=== PATIENT | male | born 1985 | race Hispanic/Latino ===

== ENCOUNTER 2018-07-09 16:42 | Emergency (ER) | payer OTHER ==
[2018-07-09] MEDS ORDERED: ASPIRIN 325 MG TABLET ONE (16:58)
[2018-07-09 17:00] LABS: BASOPHILS % (AUTO) 0.8 % (0.0-5.0); EOSINOPHILS % (AUTO) 3.7 % (0.0-8.0); HEMATOCRIT 46.9 % (42-54); LYMPHOCYTES % (AUTO) 29.7 % (21.0-51.0); MEAN CORPUSCULAR HGB CONC 35.2 g/dL (32.0-36.0); MEAN CORPUSCULAR VOLUME 85.2 fL (79-99); MONOCYTES % (AUTO) 6.6 % (3.0-13.0); NEUTROPHILS % (AUTO) 59.2 % (40.0-77.0); NUCLEATED RED BLOOD CELLS 0.1 % (0.0-0.19); PLATELET COUNT (AUTO) 242 K/uL (130-400); RED BLOOD CELL COUNT(AUTO) 5.51 MIL/uL (4.50-6.20); RED CELL DISTRIBUTION WIDTH 12.8 % (11.0-15.5); WHITE BLOOD COUNT (AUTO) 8.6 K/uL (4.8-10.8)
[2018-07-09] MEDS ORDERED: NITROGLYCERIN 1GM/1 INCH PACKET TD ONE (17:06)
[2018-07-09 17:15] LABS: INR 0.89 (0.85-1.15); PARTIAL THROMBOPLASTIN TIME 27.6 SEC (26.3-35.5); PROTHROMBIN TIME 9.4 SEC (9.6-11.6)
[2018-07-09 17:18] LABS: CREATININE 0.7 mg/dL (0.5-1.5); POTASSIUM 5.2 mmol/L (3.5-5.1)
[2018-07-09 17:19] LABS: B-TYPE NATRIURETIC PEPTIDE < 5 pg/mL (0-100)
[2018-07-09 17:25] LABS: ALBUMIN 3.7 g/dL (3.5-5.0); BILIRUBIN,TOTAL 0.4 mg/dL (0.2-1.0); TOTAL PROTEIN, SERUM 8.2 g/dL (6.0-8.3)
[2018-07-09 17:46] LABS: APPEARANCE,URINE Clear (CLEAR); BILIRUBIN,URINE Negative (NEGATIVE); COLOR,URINE Yellow (YELLOW); GLUCOSE, URINE (UA) >=1000 mg/dL (NEGATIVE); KETONES,URINE Negative (NEGATIVE); LEUKOCYTE ESTERASE ,URINE Negative (NEGATIVE); NITRATE,URINE Negative (NEGATIVE); OCCULT BLOOD,URINE Negative (NEGATIVE); PROTEIN,URINE Negative (NEGATIVE); UROBILINOGEN,URINE 0.2 mg/dL (0.2-1.0)
[2018-07-09 18:14] LABS: BACTERIA,URINE Rare /HPF (None Seen); RBC,URINE 0-1 /HPF (0-1); SQUAMOUS EPITHELIAL CELL,UR None Seen /HPF (0-2); WBC,URINE 0-1 /HPF (0-1)
[2018-07-09 18:26] LABS: AMPHET/METH SCREEN,URINE NEGATIVE (NEGATIVE); BARBITURATE SCREEN, URINE NEGATIVE (NEGATIVE); BENZODIAZEPINES SCREEN,URINE NEGATIVE (NEGATIVE); CANNABINOID SCREEN,URINE NEGATIVE (NEGATIVE); COCAINE SCREEN,URINE NEGATIVE (NEGATIVE); OPIATE SCREEN,URINE NEGATIVE (NEGATIVE); PHENCYCLIDINE SCREEN,URINE NEGATIVE (NEGATIVE)
[2018-07-09] MEDS ORDERED: METOPROLOL TARTRATE 1 MG/ML 5ML VIAL IV ONE (18:35)
== END 2018-07-09 21:18 | disposition home or self-care (01) ==
LOC: EDH 16:42
DX: I10 Essential (primary) hypertension (principal); E11.9 Type 2 diabetes mellitus without complications; R42 Dizziness and giddiness; R51 Headache; E78.5 Hyperlipidemia, unspecified; I48.91 Unspecified atrial fibrillation; Z91.14 Patient's other noncompliance with medication regimen; Z91.041 Radiographic dye allergy status
CPT/HCPCS: 36415; 71045; 80053; 80305; 81001; 82550; 83880; 84484 ×2; 85025; 85610; 85730; 93005 ×2; 96374; 99284; J3490

== ENCOUNTER 2019-10-20 19:27 | Emergency (ER) | payer OTHER ==
[2019-10-20] MEDS ORDERED: LIDOCAINE 1%-EPI 1:100,000 20 ML VIAL IJ ONE (20:43)
[2019-10-20 21:22] LABS: BASOPHILS % (AUTO) 0.4 % (0.0-5.0); HEMATOCRIT 43.3 % (42-54); LYMPHOCYTES % (AUTO) 20.8 % (21.0-51.0); MEAN CORPUSCULAR HEMOGLOBIN 30.2 pg (27.0-33.0); MEAN CORPUSCULAR HGB CONC 35.3 g/dL (32.0-36.0); MEAN CORPUSCULAR VOLUME 85.4 fL (79-99); MONOCYTES % (AUTO) 7.7 % (3.0-13.0); NEUTROPHILS % (AUTO) 67.6 % (40.0-77.0); PLATELET COUNT (AUTO) 232 K/uL (130-400); RED BLOOD CELL COUNT(AUTO) 5.07 MIL/uL (4.50-6.20); RED CELL DISTRIBUTION WIDTH 11.9 % (11.0-15.5); WHITE BLOOD COUNT (AUTO) 11.2 K/uL (4.8-10.8)
[2019-10-20 21:46] LABS: ALBUMIN 3.4 g/dL (3.5-5.0); BILIRUBIN,TOTAL 0.3 mg/dL (0.2-1.0); POTASSIUM 4.4 mmol/L (3.5-5.1); TOTAL PROTEIN, SERUM 7.8 g/dL (6.0-8.3)
[2019-10-20] MEDS ORDERED: INSULIN HUMULIN R 100 UNIT/ML 3ML ONE (22:08)
== END 2019-10-20 22:13 | disposition home or self-care (01) ==
LOC: EDH 19:27
DX: L03.221 Cellulitis of neck (principal); L02.11 Cutaneous abscess of neck; E11.9 Type 2 diabetes mellitus without complications; E78.5 Hyperlipidemia, unspecified; I10 Essential (primary) hypertension; I48.91 Unspecified atrial fibrillation; Z72.0 Tobacco use; Z91.041 Radiographic dye allergy status
CPT/HCPCS: 10060; 36415; 80053; 85025; 93005; 96372; 99284; J1815; J3490

== ENCOUNTER 2019-10-22 15:40 | Emergency (ER) | payer OTHER ==
[2019-10-22] MEDS ORDERED: CEFTRIAXONE SODIUM 2 GM VIAL ONE (16:12)
[2019-10-22] MEDS ORDERED: SODIUM CHLORIDE 0.9% 100 ML IV ONE (16:12)
[2019-10-22] MEDS ORDERED: ONDANSETRON HCL 4 MG/2 ML VIAL ONE (16:34)
[2019-10-22 16:45] LABS: BASOPHILS % (AUTO) 0.4 % (0.0-5.0); EOSINOPHILS % (AUTO) 2.7 % (0.0-8.0); HEMATOCRIT 45.9 % (42-54); LYMPHOCYTES % (AUTO) 18.4 % (21.0-51.0); MEAN CORPUSCULAR HEMOGLOBIN 29.7 pg (27.0-33.0); MEAN CORPUSCULAR HGB CONC 34.9 g/dL (32.0-36.0); MEAN CORPUSCULAR VOLUME 85.3 fL (79-99); MONOCYTES % (AUTO) 9.1 % (3.0-13.0); NEUTROPHILS % (AUTO) 68.8 % (40.0-77.0); PLATELET COUNT (AUTO) 224 K/uL (130-400); RED BLOOD CELL COUNT(AUTO) 5.38 MIL/uL (4.50-6.20); RED CELL DISTRIBUTION WIDTH 11.9 % (11.0-15.5); WHITE BLOOD COUNT (AUTO) 10.2 K/uL (4.8-10.8)
[2019-10-22 16:46] LABS: APPEARANCE,URINE Clear (CLEAR); BILIRUBIN,URINE Negative (NEGATIVE); COLOR,URINE Yellow (YELLOW); GLUCOSE, URINE (UA) >=1000 mg/dL (NEGATIVE); KETONES,URINE 15 mg/dL (NEGATIVE); LEUKOCYTE ESTERASE ,URINE Negative (NEGATIVE); NITRATE,URINE Negative (NEGATIVE); OCCULT BLOOD,URINE Negative (NEGATIVE); PH,URINE 5.5 (5.0-8.0); PROTEIN,URINE Negative (NEGATIVE)
[2019-10-22 17:00] LABS: INR 0.9 (0.85-1.15); PARTIAL THROMBOPLASTIN TIME 28.9 SEC (26.3-35.5); PROTHROMBIN TIME 9.8 SEC (9.6-11.6)
[2019-10-22 17:02] LABS: BACTERIA,URINE Rare /HPF (None Seen); MUCUS,URINE Few LPF (None Seen); RBC,URINE 0-1 /HPF (0-1); SQUAMOUS EPITHELIAL CELL,UR Moderate /HPF (0-2)
[2019-10-22 17:18] LABS: ALANINE AMINOTRANSFERASE 62 U/L (12-78); ALBUMIN 3.6 g/dL (3.5-5.0); ASPARTATE AMINOTRANSFERASE 28 U/L (10-37); BILIRUBIN,TOTAL 0.5 mg/dL (0.2-1.0); CARBON DIOXIDE 27 mmol/L (21-32); CHLORIDE 95 mmol/L (101-111); CREATINE KINASE, TOTAL 186 U/L (21-232); CREATININE 0.9 mg/dL (0.5-1.5); GLOMERULAR FILTR. RATE CALC 104 mL/min (>60); MYOGLOBIN 27 ng/mL (10-92); POTASSIUM 4.1 mmol/L (3.5-5.1); SODIUM SERUM 133 mmol/L (136-145); TOTAL PROTEIN, SERUM 8.6 g/dL (6.0-8.3); TROPONIN I < 0.04 ng/mL (0.00-0.06); UREA NITROGEN, BLOOD 11 mg/dL (7-18)
[2019-10-22 17:31] LABS: GLUCOSE,RANDOM 418 mg/dL (70-105)
[2019-10-22] MEDS ORDERED: IBUPROFEN 400 MG TABLET ONE (18:49)
[2019-10-22] MEDS ORDERED: VANCOMYCIN 1GM+NS 250ML 500 ML IV ONE (18:50)
== END 2019-10-22 21:52 | disposition home or self-care (01) ==
LOC: EDH 15:40
DX: L02.11 Cutaneous abscess of neck (principal); E11.65 Type 2 diabetes mellitus with hyperglycemia; Z20.828 Contact with and (suspected) exposure to other viral communicable diseases; R05 Cough; R50.9 Fever, unspecified; I10 Essential (primary) hypertension; I48.91 Unspecified atrial fibrillation; E78.5 Hyperlipidemia, unspecified; Z91.041 Radiographic dye allergy status
CPT/HCPCS: 36415; 70490; 71045; 80053; 81001; 82550; 83605; 83874; 84145; 84484; 85025; 85610; 85730; 86900; 86901; 87040 ×2; 87088; 93005; 96361; 96365; 96366; 96375; 99285; J0696; J2405; J3370; U0003

== ENCOUNTER 2021-11-29 22:55 | Emergency (ER) | payer BC, OTHER ==
[~2021-11-29] VITALS: Ht 190.5 cm; Wt 166.9 kg
[2021-11-29 23:34] LABS: BASOPHILS % (AUTO) 0.5 % (0.0-5.0); EOSINOPHILS % (AUTO) 4.5 % (0.0-8.0); HEMATOCRIT 41.6 % (42-54); LYMPHOCYTES % (AUTO) 31.4 % (21.0-51.0); MEAN CORPUSCULAR HEMOGLOBIN 29.4 pg (27.0-33.0); MEAN CORPUSCULAR HGB CONC 35.1 g/dL (32.0-36.0); MEAN CORPUSCULAR VOLUME 83.7 fL (79-99); MONOCYTES % (AUTO) 8.7 % (3.0-13.0); NEUTROPHILS % (AUTO) 54.2 % (40.0-77.0); PLATELET COUNT (AUTO) 223 K/uL (130-400); RED BLOOD CELL COUNT(AUTO) 4.97 MIL/uL (4.50-6.20); RED CELL DISTRIBUTION WIDTH 11.8 % (11.0-15.5); WHITE BLOOD COUNT (AUTO) 8.1 K/uL (4.8-10.8)
[2021-11-29 23:41] LABS: APPEARANCE,URINE CLEAR (CLEAR); BILIRUBIN,URINE NEGATIVE (NEGATIVE); GLUCOSE, URINE (UA) >=1000 mg/dL (NEGATIVE); KETONES,URINE NEGATIVE (NEGATIVE); LEUKOCYTE ESTERASE ,URINE NEGATIVE (NEGATIVE); NITRATE,URINE NEGATIVE (NEGATIVE); OCCULT BLOOD,URINE NEGATIVE (NEGATIVE); PROTEIN,URINE NEGATIVE (NEGATIVE); UROBILINOGEN,URINE 0.2 mg/dL (0.2-1.0)
[2021-11-29 23:46] LABS: COLOR,URINE STRAW (YELLOW)
[2021-11-29 23:48] LABS: BACTERIA,URINE None Seen /HPF (None Seen); MUCUS,URINE Rare LPF (None Seen); RBC,URINE None Seen /HPF (0-1); SQUAMOUS EPITHELIAL CELL,UR Rare /HPF (0-2); WBC,URINE None Seen /HPF (0-1); YEAST,URINE BUDDING None Seen /HPF (None Seen)
[2021-11-29 23:51] LABS: ALBUMIN 3.3 g/dL (3.5-5.0); CREATININE 0.9 mg/dL (0.5-1.5); TOTAL PROTEIN, SERUM 7.5 g/dL (6.0-8.3)
[2021-11-30] MEDS ORDERED: 0.9%NACL 1000ML 1,000 ML IV ONE
[2021-11-30] MEDS ORDERED: INSULIN HUMULIN R 100 UNIT/ML 3ML IV ONE
[2021-11-30] MEDS ORDERED: AMOX-426 PO (00:55)
[2021-11-30 01:10] VITALS: BP 147/81
== END 2021-11-30 01:11 | disposition home or self-care (01) ==
LOC: EDH 22:55
DX: E11.65 Type 2 diabetes mellitus with hyperglycemia (principal); L03.031 Cellulitis of right toe; E11.40 Type 2 diabetes mellitus with diabetic neuropathy, unspecified; E78.00 Pure hypercholesterolemia, unspecified; I10 Essential (primary) hypertension; I48.91 Unspecified atrial fibrillation; J45.909 Unspecified asthma, uncomplicated; Z88.8 Allergy status to other drugs, medicaments and biological substances
CPT/HCPCS: 99284; 80053; 85025; 82948; 86140; 81001; 36415; 73660; 96374; J1815; J7030

== ENCOUNTER 2022-11-29 08:27 | Emergency (ER) | payer BC ==
[~2022-11-29] VITALS: Ht 190.5 cm; Wt 158.8 kg
[~2022-11-29 08:27] MED LIST: AMOX-426 PO
[2022-11-29 08:52] LABS: BASOPHILS # (AUTO) 0.04 K/uL (0.00-0.20); BASOPHILS % (AUTO) 0.3 % (0.0-5.0); EOSINOPHILS # (AUTO) 0.11 K/uL (0.00-0.70); EOSINOPHILS % (AUTO) 0.8 % (0.0-8.0); HEMATOCRIT 40.3 % (42-54); IMMATURE GRANULOCYTE ABSOLUTE 0.07 K/uL (0-1); LYMPHOCYTES # (AUTO) 1.8 K/uL (1.0-4.8); LYMPHOCYTES % (AUTO) 12.8 % (21.0-51.0); MEAN CORPUSCULAR VOLUME 85.7 fL (79-99); MONOCYTES % (AUTO) 7.3 % (3.0-13.0); NEUTROPHILS # (AUTO) 10.8 K/uL (1.8-7.7); NEUTROPHILS % (AUTO) 78.3 % (40.0-77.0); PLATELET COUNT (AUTO) 219 K/uL (130-400); RED CELL DISTRIBUTION WIDTH 11.8 % (11.0-15.5); WHITE BLOOD COUNT (AUTO) 13.8 K/uL (4.8-10.8)
[2022-11-29 09:05] LABS: ALBUMIN 3.3 g/dL (3.5-5.0); BILIRUBIN,TOTAL 0.5 mg/dL (0.2-1.0); CREATININE 1.1 mg/dL (0.5-1.5); POTASSIUM 4.2 mmol/L (3.5-5.1)
[2022-11-29 09:15] LABS: SARS-CoV-2, RNA, NAAT NEGATIVE SARS CoV-2 (NEGATIVE)
[2022-11-29 09:19] LABS: INFLUENZA TYPE A Negative For Type A (NEGATIVE); INFLUENZA TYPE B Negative For Type B (NEGATIVE)
[2022-11-29] MEDS ORDERED: 0.9%NACL 1000ML 1,000 ML IV ONE ×2 (09:24→09:30)
[2022-11-29] MEDS ORDERED: ACETAMINOPHEN 500 MG TABLET PO ONE (09:30)
[2022-11-29] MEDS ORDERED: ACETAMINOPHEN 500 MG TABLET ONE (09:30)
[2022-11-29 10:09] LABS: APPEARANCE,URINE CLOUDY (CLEAR); BILIRUBIN,URINE NEGATIVE (NEGATIVE); COLOR,URINE YELLOW (YELLOW); GLUCOSE, URINE (UA) >=1000 mg/dL (NEGATIVE); KETONES,URINE 5 mg/dL (NEGATIVE); LEUKOCYTE ESTERASE ,URINE NEGATIVE Leu/uL (NEGATIVE); NITRATE,URINE NEGATIVE (NEGATIVE); OCCULT BLOOD,URINE NEGATIVE (NEGATIVE); PH,URINE 6.5 (5.0-8.0); PROTEIN,URINE 200 mg/dL (NEGATIVE)
[2022-11-29 10:10] LABS: ADD UA MICROSCOPIC YES
[2022-11-29 10:23] LABS: MUCUS,URINE RARE LPF (None Seen); SQUAMOUS EPITHELIAL CELL,UR FEW /HPF (0-2)
[2022-11-29] MEDS ORDERED: CEFTRIAXONE 1G VIAL IVPB ONE (12:00)
[2022-11-29 13:35] VITALS: BP 115/57; PULSE 98; RESP 18; O2SAT 99
[2022-11-29] MEDS ORDERED: ONDA4TAB10 PO (14:08)
[2022-11-29] MEDS ORDERED: CIPR-278 PO (14:08)
== END 2022-11-29 14:33 | disposition home or self-care (01) ==
LOC: EDH 08:27
DX: R50.9 Fever, unspecified (principal); N39.0 Urinary tract infection, site not specified; E11.9 Type 2 diabetes mellitus without complications; E78.00 Pure hypercholesterolemia, unspecified; I10 Essential (primary) hypertension; I48.91 Unspecified atrial fibrillation; J45.909 Unspecified asthma, uncomplicated; Z88.8 Allergy status to other drugs, medicaments and biological substances; Z20.822 Contact with and (suspected) exposure to COVID-19
CPT/HCPCS: 99284; 96374; 71045; 96361; 87635; 84484; 80053; 85025; 87040 ×2; 87804 ×2; 87088; 83605 ×2; 81001; 36415; 73610; 73590; 93005; C9803; J7030; J0696; 96367

== ENCOUNTER 2022-12-22 18:01 | Emergency (ER) | payer BC ==
[~2022-12-22] VITALS: Ht 190.5 cm; Wt 158.8 kg
[~2022-12-22 18:01] MED LIST changes: +CIPR-278 PO; +ONDA4TAB10 PO
[2022-12-22 18:41] LABS: BASOPHILS # (AUTO) 0.04 K/uL (0.00-0.20); BASOPHILS % (AUTO) 0.5 % (0.0-5.0); EOSINOPHILS # (AUTO) 0.36 K/uL (0.00-0.70); EOSINOPHILS % (AUTO) 4.7 % (0.0-8.0); HEMATOCRIT 39.1 % (42-54); IMMATURE GRANULOCYTE ABSOLUTE 0.04 K/uL (0-1); LYMPHOCYTES % (AUTO) 26.1 % (21.0-51.0); MEAN CORPUSCULAR HEMOGLOBIN 29.2 pg (27.0-33.0); MEAN CORPUSCULAR VOLUME 85.9 fL (79-99); MONOCYTES # (AUTO) 0.6 K/uL (0.1-1.0); MONOCYTES % (AUTO) 7.3 % (3.0-13.0); NEUTROPHILS # (AUTO) 4.7 K/uL (1.8-7.7); NEUTROPHILS % (AUTO) 60.9 % (40.0-77.0); PLATELET COUNT (AUTO) 347 K/uL (130-400); RED BLOOD CELL COUNT(AUTO) 4.55 MIL/uL (4.50-6.20); RED CELL DISTRIBUTION WIDTH 11.9 % (11.0-15.5); WHITE BLOOD COUNT (AUTO) 7.7 K/uL (4.8-10.8)
[2022-12-22 19:00] LABS: ALBUMIN 3.2 g/dL (3.5-5.0); BILIRUBIN,TOTAL 0.2 mg/dL (0.2-1.0); POTASSIUM 4.3 mmol/L (3.5-5.1); TOTAL PROTEIN, SERUM 8.5 g/dL (6.0-8.3)
[2022-12-22] MEDS ORDERED: INSULIN HUMULIN R 100 UNIT/ML 3ML IV STA (19:01)
[2022-12-22 19:15] VITALS: BP 158/85; PULSE 95; RESP 18; O2SAT 98
[2022-12-22] MEDS ORDERED: 0.9%NACL 1000ML 1,000 ML IV ONE (19:30)
== END 2022-12-22 20:11 | disposition home or self-care (01) ==
LOC: EDH 18:01
DX: E11.65 Type 2 diabetes mellitus with hyperglycemia (principal); H43.391 Other vitreous opacities, right eye; I10 Essential (primary) hypertension; E78.00 Pure hypercholesterolemia, unspecified; I48.91 Unspecified atrial fibrillation; J45.909 Unspecified asthma, uncomplicated; Z88.8 Allergy status to other drugs, medicaments and biological substances; Z91.040 Latex allergy status; Z79.899 Other long term (current) drug therapy; Z98.890 Other specified postprocedural states
CPT/HCPCS: 99284; 96374; 96361; 80053; 85025; 36415; J1815; J7030

== ENCOUNTER 2023-03-04 08:36 | Emergency (ER) | payer BC ==
[~2023-03-04] VITALS: Ht 190.5 cm; Wt 158.8 kg
[2023-03-04] MEDS ORDERED: KETOROLAC 30MG VIAL (30MG/ML) IM ONE (09:30)
[2023-03-04] MEDS ORDERED: SULF1TAB42 PO (11:42)
[2023-03-04] MEDS ORDERED: INSULIN HUMULIN R 100 UNIT/ML 3ML SQ ONE (12:00)
[2023-03-04 12:07] VITALS: BP 147/76; PULSE 88; RESP 18; O2SAT 98
== END 2023-03-04 12:09 | disposition home or self-care (01) ==
LOC: EDH 08:36
DX: L02.811 Cutaneous abscess of head [any part, except face] (principal); E11.65 Type 2 diabetes mellitus with hyperglycemia; E78.00 Pure hypercholesterolemia, unspecified; I10 Essential (primary) hypertension; Z88.8 Allergy status to other drugs, medicaments and biological substances; Z91.041 Radiographic dye allergy status
CPT/HCPCS: 99284; 10060; 87070; 87076; 87077; 87186; 82948; 96372 ×2; J1815; J1885

== ENCOUNTER 2023-03-17 00:30 | Emergency (ER) | payer BC ==
[~2023-03-17] VITALS: Ht 190.5 cm; Wt 159.7 kg
[~2023-03-17 00:30] MED LIST changes: +SULF1TAB42 PO
[2023-03-17] MEDS ORDERED: LIDOCAINE HCL 1% 20 ML VIAL ONE (01:19)
[2023-03-17] MEDS ORDERED: 0.9%NACL 1000ML 1,000 ML IV SCH (02:00)
[2023-03-17] MEDS ORDERED: INSULIN HUMULIN R 100 UNIT/ML 3ML IV ONE ×2 (02:00→04:30)
[2023-03-17] MEDS ORDERED: KETOROLAC 30MG VIAL (30MG/ML) IVP ONE (02:00)
[2023-03-17 02:06] LABS: BASOPHILS # (AUTO) 0.04 K/uL (0.00-0.20); BASOPHILS % (AUTO) 0.5 % (0.0-5.0); EOSINOPHILS # (AUTO) 0.42 K/uL (0.00-0.70); EOSINOPHILS % (AUTO) 5.5 % (0.0-8.0); HEMATOCRIT 40.6 % (42-54); IMMATURE GRANULOCYTE ABSOLUTE 0.05 K/uL (0-1); LYMPHOCYTES % (AUTO) 39.2 % (21.0-51.0); MEAN CORPUSCULAR HGB CONC 34.5 g/dL (32.0-36.0); MEAN CORPUSCULAR VOLUME 84.1 fL (79-99); MONOCYTES # (AUTO) 0.6 K/uL (0.1-1.0); MONOCYTES % (AUTO) 8.3 % (3.0-13.0); NEUTROPHILS # (AUTO) 3.5 K/uL (1.8-7.7); NEUTROPHILS % (AUTO) 45.8 % (40.0-77.0); PLATELET COUNT (AUTO) 291 K/uL (130-400); RED BLOOD CELL COUNT(AUTO) 4.83 MIL/uL (4.50-6.20); RED CELL DISTRIBUTION WIDTH 12.4 % (11.0-15.5); WHITE BLOOD COUNT (AUTO) 7.7 K/uL (4.8-10.8)
[2023-03-17 02:19] LABS: CREATININE 0.9 mg/dL (0.5-1.5); POTASSIUM 4.1 mmol/L (3.5-5.1)
[2023-03-17 04:29] VITALS: BP 142/76; PULSE 74; RESP 16; O2SAT 99
== END 2023-03-17 05:09 | disposition home or self-care (01) ==
LOC: EDH 00:30
DX: L02.31 Cutaneous abscess of buttock (principal); L02.811 Cutaneous abscess of head [any part, except face]; E11.65 Type 2 diabetes mellitus with hyperglycemia; E78.00 Pure hypercholesterolemia, unspecified; I10 Essential (primary) hypertension; F32.A Depression, unspecified; Z88.8 Allergy status to other drugs, medicaments and biological substances; Z91.013 Allergy to seafood
CPT/HCPCS: 99284; 10061; 96374; 96361; 96375; 80048; 85025; 87070; 87076; 82948 ×2; 36415; J1815 ×2; J7030; J1885

== ENCOUNTER 2023-04-23 15:02 | Emergency (ER) | payer BC, OTHER ==
[~2023-04-23] VITALS: Ht 190.5 cm; Wt 164.2 kg
[2023-04-23 15:08] VITALS: BP 152/88; PULSE 96; RESP 16; O2SAT 98
== END 2023-04-23 16:00 | disposition home or self-care (01) ==
LOC: EDH 15:02
DX: L02.811 Cutaneous abscess of head [any part, except face] (principal); E11.9 Type 2 diabetes mellitus without complications; E78.00 Pure hypercholesterolemia, unspecified; I10 Essential (primary) hypertension; F32.A Depression, unspecified; Z88.8 Allergy status to other drugs, medicaments and biological substances; Z91.041 Radiographic dye allergy status
CPT/HCPCS: 99282

== ENCOUNTER 2024-03-07 22:29 | Emergency (ER) | payer OTHER ==
[~2024-03-07] VITALS: Ht 190.5 cm; Wt 152.5 kg
[~2024-03-07 22:29] MED LIST changes: -AMOX-426 PO; +BUSP5TAB3 PO; -CIPR-278 PO; +HONE44PA TP; +LEVO-70 PO; +LISI2.5T13 PO; +MELO-108 PO; +METF-446 PO; +METH-812 PO; +METO-408 PO; -ONDA4TAB10 PO; +ROSU40TA88 PO; -SULF1TAB42 PO; +TIRZ15PE SQ
[2024-03-07 22:31] VITALS: BP 145/83; PULSE 93; RESP 20; TEMP 97.5
--- NOTE | 2024-03-07 23:21 | HMCIMG ---
CHEST 1VW HISTORY: PICC line placement COMPARISON: None FINDINGS: A frontal projection of the chest was obtained. No acute pulmonary infiltrates is seen. The heart is normal in size. Prominent interstitial markings are seen. PICC line is seen entering from the right with distal tip in plane of the superior vena cava. IMPRESSION: 1. No acute pulmonary infiltrate is seen.
--- NOTE | 2024-03-07 23:59 | NUR ---
REPORT TO AURELIO ZEPEDA
--- NOTE | 2024-03-08 00:20 | NUR ---
DRESSING TO R UPPER ARM PICC LINE CHANGED, PATIENT TOLERATED WELL
--- NOTE | 2024-03-08 00:23 | ERN ---
General Chief Complaint: Other Problems Stated Complaint: RT PICC LINE DRESSING COMING OFF. HAKEEM ONE JUDD Time Seen by MD: 22:32 History of Present Illness Initial Comments Mr. Solo is a very pleasant 38-year-old male significant past medical history of morbid obesity essential hypertension and hyperlipidemia who comes in with a complaint of a PICC line dressing malfunction. Patient reports that he is taking antibiotics for a osteomyelitis of his lower extremities. Patient states that he perspire is a lot and that has a dressing if it was no longer attached well. Patient comes in for a dressing change. Allergies: Coded Allergies: Iodine and Iodide Containing Produc (Unverified Allergy, Unknown, 11/29/21) shellfish derived (Unverified Allergy, Unknown, 11/29/21) Home Meds Reported Medications Tirzepatide (Mounjaro) 15 Mg/0.5 Ml Pen.injctr, 15 MG SQ QWEEK 03/06/24 Honey (Medihoney) 100 % Paste..ml., 1 APPL TP BID 03/02/24 Buspirone HCl (Buspirone HCl) 5 Mg Tablet, 1 TAB PO BID 03/02/24 Methocarbamol (Methocarbamol) 750 Mg Tablet, 1 TAB PO Q4HPRN PRN for muscle spasm 03/02/24 Rosuvastatin Calcium (Rosuvastatin Calcium) 40 Mg Tablet, 1 TAB PO DAILY 03/02/24 Meloxicam (Meloxicam) 15 Mg Tablet, 1 TAB PO DAILY PRN for pain 03/02/24 Metformin HCl (Metformin HCl) 1,000 Mg Tablet, 1 TAB PO BID 03/02/24 Lisinopril (Lisinopril) 2.5 Mg Tablet, 1 TAB PO DAILY 03/02/24 Metoprolol Succinate (Metoprolol Succinate) 25 Mg Tab.er.24h, 1 TAB PO HS 03/02/24 Discontinued Reported Medications Levofloxacin (Levofloxacin) 500 Mg Tablet, 1 TAB PO DAILY 03/02/24 Tirzepatide (Mounjaro) 15 Mg/0.5 Ml Pen.injctr, 15 MG SQ QWEEK 03/02/24 Past Medical History Past Medical History: A-Fib, Depression, Diabetes-Type I, Diabetes-Type II, High Cholesterol, Hypertension, Other Medical History Other: VERTIGO, PICC LINE RT UPPER ARM Past Surgical History: Other Surgical History Other: ABCESS, Social History Social History: Negative ROS Dictation Constitutional: Negative for fever,chills, and weight loss Eyes: Negative for injury, pain,redness, and discharge ENT: Negative for injury,pain or swelling Cardiovascular: Negative for chest pain, palpitations, and edema Respiratory: Negative for shortness of breath, cough, and wheezing, Abdomen/GI: Negative for abdominal pain, nausea, vomiting, diarrhea, and constipation Back: Negative for injury and pain : Negative for injury, bleeding and discharge MS/Extremity: Negative for injury and deformity Skin: Negative for rash, and discoloration Neuro: Negative for headache, weakness, numbness, tingling, and seizure Psych: Negative for suicide ideation, homicidal ideation, and hallucinations Physical Exam Physical Exam Dictation General: awake, alert, NAD Head/Face: Normocephalic, atraumatic Eyes: PERRL, EOMI, vision at baseline ENT: oral cavity clear, TMs clear, no signs of infection Neck: Trachea midline, supple, Cardiovascular: RRR, normal S1/S2 Respiratory: CTAB, no respiratory distress, No rales or wheezes Abdomen: Soft, non-tender, non-distended, normal bowel sounds, Skin: Warm, dry, normal turgor, no rash MS/Extremity: Pulses equal, no cyanosis, neurovascular intact, FROM, PICC line of her right bicep. Neuro: COAx4, GCS 15, strength 5/5, CN 2-12 intact Psych: Normal behavior, mood, and affect normal MDM Patient has had a dressing change house attendant his right PICC line. Chest x-ray confirms appropriate placement of PICC line. Patient will be discharged. MDM: Differential diagnosis: PICC line problem Rationale: Tests considered and ordered secondary to shared decision making include: Previous outside records reviewed: Old ER visits. Risk of complication and/or morbidity or mortality of patient management: None Medications-Per medication reconciliation Need for hospitalization: Patient does not meet criteria for hospitalization. Need for emergency major/minor surgery: No There are no social concerns with this patient. Prescription drug management Prescriptions will include symptomatic care Patient's prior external medical records from other ER visits were reviewed by me as indicated. Prior testing and results from previous visits were reviewed. Prior tests were taken into account with medical decision making and resource utilization, independent historian/historians were used to obtain complete medical history. I independently interpreted the test that were performed, results were reviewed by me and considered findings on radiology if ordered. Medical management and examination interpretation discussions were had by me with other qualified healthcare professionals as indicated for the patient's care. ED Course Orders Procedure Category Date Status Time Chest 1vw RAD 03/07/24 Resulted 22:31 Vital Signs Date Time Temp Pulse Resp B/P (MAP) Pulse Ox O2 Delivery O2 Flow Rate FiO2 03/07/24 22:31 97.5 93 20 145/83 98 Room Air DX & DISP Disposition: Discharge Departure Impression: Primary Impression: Status post peripherally inserted central catheter (PICC) central line placement Condition: Stable Additional Instructions: Please continue to care for your PICC line as needed. Please follow up with your primary care physician in the next 2-4 weeks to discuss further management of your PICC line. Referrals: ISSA ELIZABETH MD (PCP) MANDY CENTENO MD Mar 08, 2024 00:23
== END 2024-03-08 00:27 | disposition home or self-care (01) ==
LOC: EDH 22:29
DX: Z45.2 Encounter for adjustment and management of vascular access device (principal); E11.9 Type 2 diabetes mellitus without complications; E66.01 Morbid (severe) obesity due to excess calories; E78.00 Pure hypercholesterolemia, unspecified; I10 Essential (primary) hypertension; I48.91 Unspecified atrial fibrillation; Z79.84 Long term (current) use of oral hypoglycemic drugs; Z79.85 Long-term (current) use of injectable non-insulin antidiabetic drugs; Z79.899 Other long term (current) drug therapy; Z88.8 Allergy status to other drugs, medicaments and biological substances; Z91.041 Radiographic dye allergy status; Z98.890 Other specified postprocedural states
CPT/HCPCS: 71045; 99283

== ENCOUNTER 2024-12-22 15:24 | Emergency (ER) | payer OTHER ==
[~2024-12-22] VITALS: Ht 190.5 cm; Wt 155.6 kg
[~2024-12-22 15:24] MED LIST changes: -BUSP5TAB3 PO; +IBUP-2077 PO; -LEVO-70 PO; -MELO-108 PO; -METF-446 PO; -METH-812 PO
[2024-12-22 16:56] VITALS: BP 157/83; PULSE 86; RESP 16; TEMP 98.8; O2SAT 97
--- NOTE | 2024-12-22 16:56 | NUR ---
DRESSING CHANGED TO PICC LINE SITE USING STERILE TECHNIQUE, PT TOLERATED WELL
--- NOTE | 2024-12-22 17:13 | ERN ---
General Chief Complaint: Other Problems Stated Complaint: PICC LINE LEAKING Time Seen by MD: 15:27 Source: patient History of Present Illness Initial Comments Patient is a 39-year-old male coming in complaining of right arm PICC line problems. Per patient he has has a PICC line placed by PCP for ongoing management. Patient states that earlier today while being evaluated started leaking. Allergies: Coded Allergies: Iodine and Iodide Containing Produc (Unverified Allergy, Unknown, 11/29/21) shellfish derived (Unverified Allergy, Unknown, 11/29/21) Home Meds Active Scripts Ibuprofen (Ibuprofen 800 mg Tab) 800 Mg Tab, 1 TAB PO TID for pain for 10 Days, #30 TAB 0 Refills Prov:JEANA ALVAREZ 12/15/24 Lisinopril (Lisinopril) 2.5 Mg Tablet, 2.5 MG PO DAILY, #30 TAB 1 Refill Prov:JEANA ALVAREZ 12/15/24 Reported Medications Metoprolol Succinate (Metoprolol Succinate) 25 Mg Tab.er.24h, 1 TAB PO DAILY for 30 Days, #30 TAB 0 Refills 12/09/24 Tirzepatide (Mounjaro) 15 Mg/0.5 Ml Pen.injctr, 15 MG SQ QWEEK 03/06/24 Honey (Medihoney) 100 % Paste..ml., 1 APPL TP BID 03/02/24 Rosuvastatin Calcium (Rosuvastatin Calcium) 40 Mg Tablet, 1 TAB PO HS 03/02/24 Discontinued Reported Medications Lisinopril (Lisinopril) 2.5 Mg Tablet, 1 TAB PO DAILY 03/02/24 Past Medical History Past Medical History: A-Fib, Depression, Diabetes-Type I, Diabetes-Type II, High Cholesterol, Hypertension, Other Medical History Other: VERTIGO, PICC LINE RT UPPER ARM Past Surgical History: Other Surgical History Other: ABCESS, Social History Social History: Negative ROS Dictation CONSTITUTIONAL: No chills, no fever, no weakness, no diaphoresis, no malaise. HEAD/FACE: No signs of trauma. EENT: No eye pain, no blurred vision, no tearing, no double vision, no ear pain, no ear discharge, no nose pain, no nasal congestion, no throat pain, no throat swelling, no mouth pain. RESPIRATORY: No cough, no orthopnea, no SOB, no stridor, no wheezing. CARDIOVASCULAR: No chest pain, no edema, no palpitations, no syncope. GASTROINTESTINAL/ABDOMINAL: No abdominal pain, no constipation, no diarrhea, no nausea, no vomiting. GENITOURINARY: No abnormal discharge, no dysuria, no frequent urination, no hematuria. No complaints of pain in the genitals. MUSCULOSKELETAL: No back pain, no gout, no joint pain, no joint swelling, no muscle pain, no muscle stiffness, no neck pain. INTEGUMENTARY: No change in color, no change in hair/nails, no dryness, no lesion, no lumps, no rash. NEUROLOGICAL/PSYCH: No anxiety, not depressed, no emotional problem, no headache, no numbness, no pre-existing deficit, no history of seizures, no tremors, no weakness. HEMATOLOGIC/LYMPHATIC: Not anemic, no history of blood clots, no apparent bleeding, no bruising, glands not swollen. All Systems Negative, Except as Noted. Physical Exam Physical Exam Dictation VITAL SIGNS: Reviewed. GENERAL APPEARANCE: Alert, oriented x3, no acute distress, obese. HEAD AND FACE: Non-traumatic. EYES: PERRL, pink conjunctivas, eyelid no trauma, anterior chamber clear. EARS: Pinnas intact and no signs of trauma or erythema. Ear canals clear and no discharge. TMs no erythema. NOSE: No discharge, no bleeding. OROPHARYNX: Mouth normal, teeth no caries, tongue pink. Pharynx clear, no erythema. Tonsils no exudates, no abscesses noted. Mucous membrane moist. NECK: Supple, non-tender, no thyromegaly, no masses, no JVD, no bruits. BREAST: Deferred. CHEST: No tenderness, no crepitus, no paradoxical movement, no retractions. LUNGS: Clear, well-ventilated, symmetric, no rales, no wheezing, no rhonchi, no stridor, good breath sounds bilaterally. HEART: Regular rate, regular rhythm, no murmur, no gallops. VASCULAR: No peripheral edema. ABDOMEN: Soft, positive bowel sounds, nondistended, no guarding, nontender, no rebound, no masses no hepatomegaly, no splenomegaly, no Cooper's sign, no hernias. RECTAL: Deferred. GENITAL: Deferred. NEUROLOGICAL: Normal speech, gross motor function intact, gross sensory function intact. MUSCULOSKELETAL: Neck nontender, full range of motion, back nontender, full range of motion. EXTREMITIES: Nontender, full range of motion. SKIN: Color pink, right arm PICC line in place, LYMPHATICS: Deferred. Results Laboratory and Microbiology Labs Reviewed?: Yes MDM MDM: Differential diagnosis: PICC line evaluation, Rationale: Tests considered and ordered secondary to shared decision making include: Previous outside records reviewed: Old ER visits. Risk of complication and/or morbidity or mortality of patient management: None Medications-Per medication reconciliation Need for hospitalization: Patient does not meet criteria for hospitalization. Need for emergency major/minor surgery: No Patient is a 39-year-old male coming in complaining of right arm PICC line problems. Dressing was changed PICC line was evaluated in worked fine. Patient will be discharged in stable condition. ED Course Orders Procedure Category Date Status Time *Nursing CPOE 12/22/24 Transmitted Communication: 16:55 Vital Signs Date Time Temp Pulse Resp B/P (MAP) Pulse Ox O2 Delivery O2 Flow Rate FiO2 12/22/24 16:56 98.8 86 16 157/83 97 Room Air* 0 21 12/22/24 15:25 98.8 98 16 140/84 100 Room Air 0 DX & DISP Disposition: Discharge Departure Impression: Primary Impression: Bleeding from PICC line Condition: Stable Additional Instructions: FOLLOW-UP WITH PRIMARY CARE PROVIDER IN 1 TO 2 DAYS. TAKE MEDICATIONS DIRECTED HERE IN THE EMERGENCY ROOM. OKAY TO CONTINUE HOME MEDICATIONS UNLESS OTHERWISE DISCUSSED DURING YOUR VISIT IN THE EMERGENCY ROOM TODAY. RETURN TO YOUR NEAREST EMERGENCY ROOM IF SYMPTOMS WORSEN OR IF THERE IS NO IMPROVEMENT. CALL 911 IF YOU NEED IMMEDIATE ASSISTANCE. TAKE TYLENOL [id number] NEEDED AND IF NO CONTRAINDICATIONS ARE PRESENT. INCREASE ORAL HYDRATION. A WOUND CULTURE OR URINE CULTURE WAS ORDERED HERE IN THE EMERGENCY ROOM DEPARTMENT PLEASE FOLLOW-UP WITH PRIMARY CARE PROVIDER AND ADVISE THEM TO GET REPORTS FROM OUR FACILITY. IF YOU HAD ANY ANNABELLE WRAP/SPLINTS THAT WERE APPLIED HERE, PLEASE DO NOT REMOVE THEM UNTIL YOU SEE YOUR PRIMARY CARE OR SPECIALTY. Referrals: Referrals: SELF,REFERRAL (PCP) ZOË MUNOZ MD Time of Disposition: 17:13 SANDI RICHARDSON MD Dec 22, 2024 17:13
== END 2024-12-22 17:37 | disposition home or self-care (01) ==
LOC: EDH 15:24
DX: T82.838A Hemorrhage due to vascular prosthetic devices, implants and grafts, initial encounter (principal); E11.9 Type 2 diabetes mellitus without complications; E78.00 Pure hypercholesterolemia, unspecified; I10 Essential (primary) hypertension; Z79.1 Long term (current) use of non-steroidal anti-inflammatories (NSAID); Z79.85 Long-term (current) use of injectable non-insulin antidiabetic drugs; Z79.899 Other long term (current) drug therapy; Z88.8 Allergy status to other drugs, medicaments and biological substances; Z91.013 Allergy to seafood; Y82.8 Other medical devices associated with adverse incidents; Y92.89 Other specified places as the place of occurrence of the external cause
CPT/HCPCS: 99282